=== PATIENT | male | born 1945 | race Caucasian/White ===

== ENCOUNTER 2018-11-14 11:27 | Inpatient (IN) | payer MEDICARE, OTHER ==
[~2018-11-14] VITALS: Ht 177.8 cm; Wt 111.1 kg
[~2018-11-14 11:27] MED LIST: CYCL10 PO; ENOX40I SQ; FISH OIL + D31 EACH PO; GLIP10 PO; LOSARTAN POTAS100 MG PO; METF500 PO; Norco 5-325 Ta1 EACH PO; OXYACE5T PO
[2018-11-14 11:58] LABS: BASOPHILS ABSOLUTE AUTO 0.05 K/mm3 (0.00-0.23); BASOPHILS PERCENT AUTO 1 % (0-2); EOSINOPHILS ABSOLUTE AUTO 0.67 K/mm3 (0.00-0.68); EOSINOPHILS PERCENT AUTO 8 % (0-6); Hematocrit 42.8 % (37.0-53.0); Hemoglobin 14.3 g/dL (13.5-17.5); IMMATURE GRAN ABSOLUTE AUTO 0.04 K/mm3 (0.00-0.10); IMMATURE GRAN PERCENT AUTO 1 % (0-1); LYMPHOCYTES ABSOLUTE AUTO 1.36 K/mm3 (0.84-5.20); LYMPHOCYTES PERCENT AUTO 16 % (21-46); MONOCYTES ABSOLUTE AUTO 0.72 K/mm3 (0.16-1.47); MONOCYTES PERCENT AUTO 9 % (4-13); Mean Corpuscular HGB 31.6 pg (26.0-34.0); Mean Corpuscular HGB Conc 33.4 g/dL (31.5-36.5); Mean Corpuscular Volume 95 fL (80-100); Mean Platelet Volume 9.8 fL (9.1-12.4); NEUTROPHILS ABSOLUTE AUTO 5.43 K/mm3 (1.96-9.15); NEUTROPHILS PERCENT AUTO 66 % (41-73); Platelet Count 160 K/mm3 (150-400); RDW Coefficient Variation 12.8 % (11.7-14.2); RDW Standard Deviation 44.7 fL (35.1-46.3); Red Blood Cell Count 4.52 M/mm3 (4.30-5.90); White Blood Cell Count 8.27 K/mm3 (4.00-11.30)
[2018-11-14 12:11] LABS: Albumin/Globulin Ratio 0.7 (0.8-1.8); Bilirubin, Total 1.9 mg/dL (0.1-1.0); Bun/Creatinine Ratio 17.9 (12.0-20.0); Calcium, Blood 10.1 mg/dL (8.5-10.1); Creatinine, Blood 1.84 mg/dL (0.60-1.20); Globulin, Blood 4.2 g/dL (2.2-4.0); Potassium, Blood 3.5 mmol/L (3.5-5.5); Total Protein, Blood 7.2 g/dL (6.4-8.2)
[2018-11-14 12:58] LABS: Influenza A Negative (NEGATIVE); Influenza B Negative (NEGATIVE)
[2018-11-14 16:53] LABS: Source, Urine Clean Catch
[2018-11-14 16:58] LABS: Bilirubin, Urine Neg (Neg); Blood, Urine Neg (Neg); Glucose Qualitative, Urine Neg (Neg); Ketones, Urine Neg (Neg); Leukocyte Esterase, Urine 1+ (Neg); Nitrite, Urine Neg (Neg); Protein, Urine 1+ (Neg); Specific Gravity, Urine 1.015 (1.003-1.022); Urobilinogen, Urine 1+ (Normal)
[2018-11-14 17:06] LABS: Appearance, Urine Clear (Clear); Color, Urine Yellow (P-Yellow)
[2018-11-14 17:12] LABS: Hyaline Casts 0-2 /lpf (0-2); Red Blood Cells, Urine 0-2 /hpf (0-2)
[2018-11-14 17:13] LABS: Bacteria Few /hpf; Squamous Epithelial Cells Rare /hpf (Few)
--- NOTE | 2018-11-14 19:17 | NUR ---
PT PLEASANT COOP SINCE ADMIT. SLIGHT TEMP ELEVATED. TYLENOL GIVEN. LACTIC ACID DID INCREASE DR NOTIFIED. LIGHT CRACKLES IN BASES. NO OTHER CONCERN AT THIS TIME. BED IN LOW POSITION, CALL LITE IN REACH, CALLS SANDRA. ; IN ROOM.
--- NOTE | 2018-11-14 22:16 | NUR ---
*LATE ENTRY CALLED 1999 HRS* PT HAD 102 TEMP, BP 110/72, HR 116. VIEWS SCORE-5. CONSULTED RECYCLER, CALLED ORDERS FOR LR @ 200 ML/HR, TYLENOL Q6 650 MG PRN FEVER GIVEN.
--- NOTE | 2018-11-14 22:19 | NUR ---
CALLED PT'S DR PT'S BP LOWERED TO 85/55, PULSE 106, TEMP 99.6. CALLED DR, MADE HER AWARE OF NEW VS. RECEIVED ORDER FOR 500 ML BOLUS OF LR, ONE TIME ONLY. RECHECKING BP AT 2230 HRS.
--- NOTE | 2018-11-14 23:58 | NUR ---
CALLED PT'S DR CALLED PT'S DR AT 2300 HRS TO REPORT BP OF 85/55, THIS WAS VERIFIED BY CHECKING BP'S IN BOTH ARMS WITH DIFFERENT CUFFS. DR ORDERED TO CONTINUE LR AT 200 ML/HR UNTIL COMPLETE AND THEN CONTINUE NS AT 125 ML/HR.
--- NOTE | 2018-11-15 00:04 | NUR ---
PT STATUS CLINICAL COODINATOR EVALUATED PT AND TOOK BP'S. ORDERED FLUID BOLUS WHEN BP WAS FOUND TO BE 79 SYSTOLIC. CALLED A RAPID RESPONSE AT APPROX 2330 HRS. RAPID RESPONSE TEAM FOUND THE PT SLOW TO RESPOND TO FLUID BOLUS WITH BP MID 80'S SYSTOLIC. RAPID RESPONSE TEAM EVALUATED THE SITUATION AND THE PT'S CONDITION AND MADE THE DECISION TO TAKE PT TO ICU. I IMMEDIATELY CALLED AND GAVE HANDOFF REPORT TO ICU NURSE ACE. HE HAD NO FURTHER QUESTIONS. RAPID RESPONSE TEAM TRANSPORTED THE PT TO TO ICU.
[2018-11-15 00:44] LABS: CPK Creatine Kinase 44 U/L (39-308); Troponin I 0.043 ng/mL (0.000-0.040)
[2018-11-15 00:55] LABS: Creatine Kinase MB < 1.0 ng/mL (0.0-3.6); Creatine Kinase MB Index 2.3 (0.0-4.0)
--- NOTE | 2018-11-15 02:30 | NUR ---
ASSUMING CARE RECEIVED PT REPORT FROM CASSANDRA GARCIA ON MEDICAL FLOOR. 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 PT BP IS IN THE LOW 70'S SYSTOLIC AT THE TIME OF ARRIVAL TO THE UNIT. PT IS ALERT AND OREINTED AT THIS TIME. PT HAS RECEIVED 2L BOLUSES OF LR ON MEDICAL FLOOR PER REPORT. PT IS RECEIVING LR AT 200ML/HR AT THE TIME OF ARRIVAL TO THE UNIT. PT CONTINUED TO BE HYPOTENSIVE. DR SERRANO WAS CALLED. RECEIVED ORDERS TO PROVIDE 2 ADDITIONAL LITER BOLUSES OF LR AND TO REDRAW LACTIC ACID. ORDERS ENTERED RECEIVED. PT IS SLIGHTLY DIAPHORETIC. TROPONIN DRAWN AND EKG PERFORMED. EKG READ NSR. PT IS AT BEDSIDE. AT THIS TIME PT CONTINUES TO RECEIVE FINAL LR BOLUS. PT BP HAS INCREASED TO THE LOW 90'S SYSTOLIC. ASSUMING CARE OF PT AT THE TIME OF ARRIVAL TO UNIT. WILL CONTINUE TO MONITOR PT.
[2018-11-15 03:28] LABS: BASOPHILS ABSOLUTE AUTO 0.03 K/mm3 (0.00-0.23); BASOPHILS PERCENT AUTO 1 % (0-2); EOSINOPHILS ABSOLUTE AUTO 0.56 K/mm3 (0.00-0.68); EOSINOPHILS PERCENT AUTO 9 % (0-6); Hematocrit 34.1 % (37.0-53.0); Hemoglobin 11.4 g/dL (13.5-17.5); IMMATURE GRAN ABSOLUTE AUTO 0.03 K/mm3 (0.00-0.10); IMMATURE GRAN PERCENT AUTO 1 % (0-1); LYMPHOCYTES ABSOLUTE AUTO 1.25 K/mm3 (0.84-5.20); LYMPHOCYTES PERCENT AUTO 20 % (21-46); MONOCYTES ABSOLUTE AUTO 0.54 K/mm3 (0.16-1.47); MONOCYTES PERCENT AUTO 9 % (4-13); Mean Corpuscular HGB Conc 33.4 g/dL (31.5-36.5); Mean Corpuscular Volume 96 fL (80-100); Mean Platelet Volume 9.5 fL (9.1-12.4); NEUTROPHILS ABSOLUTE AUTO 3.88 K/mm3 (1.96-9.15); NEUTROPHILS PERCENT AUTO 62 % (41-73); Platelet Count 121 K/mm3 (150-400); RDW Standard Deviation 45.7 fL (35.1-46.3); Red Blood Cell Count 3.56 M/mm3 (4.30-5.90); White Blood Cell Count 6.29 K/mm3 (4.00-11.30)
[2018-11-15 03:49] LABS: Albumin, Blood 2.3 g/dL (3.4-5.0); Albumin/Globulin Ratio 0.7 (0.8-1.8); Bun/Creatinine Ratio 20.6 (12.0-20.0); Calcium, Blood 8.6 mg/dL (8.5-10.1); Creatinine, Blood 1.36 mg/dL (0.60-1.20); Globulin, Blood 3.3 g/dL (2.2-4.0); Potassium, Blood 3.4 mmol/L (3.5-5.5); Total Protein, Blood 5.6 g/dL (6.4-8.2); Vancomycin, Random 8.2 ug/mL
[2018-11-15 03:58] LABS: Magnesium, Blood 1.1 mg/dL (1.6-2.4)
--- NOTE | 2018-11-15 06:02 | NUR ---
SHIFT SUMMARY NOTE PT RECEIVED 2L BOLUSES OF LR AFTER ARRIVAL TO THE UNIT PER ORDERS. PT IS CURRENTLY RECEIVING NS AT 125ML/HR. PT BP HAS INCREASED TO THE LOW 10'S AND IS MAINTAINING AT THIS TIME. PT HAS VOIDED FREQUENT SMALL AMOUNTS THROUGHOUT THE NIGHT. PT URINE APPEARED TO BE DARK SHANNON/ORANGE SHORTLY AFTER ARRIVAL TO THE UNIT, MORE RECENT VOIDS APPEAR TO BE BECOMING MORE LIGHT IN COLOR. PT HR IS MAINTAINING IN THE 90'S AT THIS TIME AND APPEARS TO BE SINUS. PT REMAINS ON CPAP AT THIS TIME WITH 2L BLEED IN WITH SPO2 MAINTAINING IN THE 90'S PT REMAINS ALERT AND ORIENTED WHILE AWAKE. WILL REPORT OFF TO ONCOMING DAY SHIFT NURSE.
--- NOTE | 2018-11-15 08:45 | NUR ---
DR SUSHMA ORDAZ ROUNDED, UPDATED ON PT STATUS. PT WITH CRITICAL LOW MAG THIS MORNING WITH REPLACEMENT BUT NOT F/U LEVEL, DR ORDAZ NOTIFIED AND ORDER FOR MAG LEVEL PLACED. PT WITH BUMPED TROPONIN, DR ORDAZ AWARE AND ORDER FOR REPEAT TROPONIN PLACED TO SEE TREND. DR ORDAZ AWARE OF PT'S OTHER LAB RESULTS. ORDER RECEIVED FOR CTA CHEST TO R/O PE AND CT ABD AND PELVIS D/T ELEVATED LFT. NO FURTHER CHANGES TO PLAN OF CARE AT THIS TIME. WILL CONT TO MONITOR PT.
--- NOTE | 2018-11-15 09:14 | NUR ---
OUT OF BED PT UP TO BSC AND THEN TO CHAIR WITH 1P SBA D/T CORDS/LINES. PT TOLERATED TRANSFER WELL, NO C/O DIZZINESS/LIGHTHEADEDNESS. PT WITH CHRONIC BACK PAIN, EXPERIENCING INCREASED DISCOMFORT WITH LYING IN BED, REPORTS IMPROVEMENT WITH SITTING UP IN CHAIR. CALL LIGHT IN REACH. WILL CONT TO MONITOR PT.
[2018-11-15 09:58] LABS: Magnesium, Blood 1.4 mg/dL (1.6-2.4); Troponin I 0.024 ng/mL (0.000-0.040)
--- NOTE | 2018-11-15 10:32 | NUR ---
IMAGING PT TO IMAGING FOR CTA AND CT ABD/PELVIS. PT TRANSPORTED VIA WHEELCHAIR WITH MONITOR ON. PT RETURNED TO ICU 10 AND ASSISTED BACK TO CHAIR. PT TOLERATED TRANSPORT AND STUDY WELL. CALL LIGHT IN REACH. WILL CONT TO MONITOR PT.
--- NOTE | 2018-11-15 10:37 | NUR ---
CALL TO DR SUSHMA ORDAZ NOTIFIED OF MAGNESIUM AND TROPONIN RESULTS. ORDERS RECEIVED FOR 2G MAGNESIUM IVPB NOW. NO FURTHER CHANGES TO PLAN OF CARE AT THIS TIME. WILL CONT TO MONITOR PT.
--- NOTE | 2018-11-15 11:07 | NUR ---
REPORT OFF REPORT GIVEN TO CASSANDRA SMITH. BEDSIDE REPORT GIVEN. LUIS TO ASSUME CARE OF PT AT THIS TIME.
--- NOTE | 2018-11-15 11:08 | NUR ---
RECEIVED REPORT FROM CASSANDRA SAEED, AND ASSUMED CARE OF PT.
--- NOTE | 2018-11-15 11:35 | NUR ---
STARTED 2ND MAG SULFATE 2G FOR TODAY.
[2018-11-15 11:52] LABS: BASOPHILS ABSOLUTE AUTO 0.04 K/mm3 (0.00-0.23); BASOPHILS PERCENT AUTO 1 % (0-2); EOSINOPHILS ABSOLUTE AUTO 0.43 K/mm3 (0.00-0.68); EOSINOPHILS PERCENT AUTO 6 % (0-6); Hematocrit 34.4 % (37.0-53.0); Hemoglobin 11.3 g/dL (13.5-17.5); IMMATURE GRAN ABSOLUTE AUTO 0.04 K/mm3 (0.00-0.10); IMMATURE GRAN PERCENT AUTO 1 % (0-1); LYMPHOCYTES ABSOLUTE AUTO 0.98 K/mm3 (0.84-5.20); LYMPHOCYTES PERCENT AUTO 14 % (21-46); MONOCYTES ABSOLUTE AUTO 0.45 K/mm3 (0.16-1.47); MONOCYTES PERCENT AUTO 7 % (4-13); Mean Corpuscular HGB 31.4 pg (26.0-34.0); Mean Corpuscular HGB Conc 32.8 g/dL (31.5-36.5); Mean Corpuscular Volume 96 fL (80-100); Mean Platelet Volume 10.4 fL (9.1-12.4); NEUTROPHILS ABSOLUTE AUTO 4.94 K/mm3 (1.96-9.15); NEUTROPHILS PERCENT AUTO 72 % (41-73); Platelet Count 123 K/mm3 (150-400); RDW Coefficient Variation 13.3 % (11.7-14.2); White Blood Cell Count 6.88 K/mm3 (4.00-11.30)
--- NOTE | 2018-11-15 14:42 | NUR ---
SENT URINE SPECIMEN FOR URINE LEGIONELLA TEST AND STREP. SENT RESPIRATORY PCR SWAB TO LAB.
--- NOTE | 2018-11-15 18:05 | NUR ---
NURSING SUMMARY ALERT AND ORIENTED X 4. NSR ON MONITOR, HR 70'S AND 80'S, BP STABLE. DID HAVE AN CONTACT FINGER ASSEMBLER ON 11/14 FOR LOW BP'S WITH SBP 60'S AND 70'S. BP STABLE AFTER IVF BOLUSES AND NS INFUSING AT 125 ML/HR. PT VOIDS PER URINAL. DID HAVE HIS FAMILY ASSIST HIM TO THE TOILET TODAY TO VOID. INSTRUCTED PT THAT HE NEEDS TO CALL STAFF FOR ASSISTANCE TO THE BATHROOM FOR SAFETY, TO MANAGE THE TUBES/LINES, AND PREVENT FALLS. VERBALIZED GOOD UNDERSTANDING. BM THIS MORNING. LUNGS CLEAR, DIMINISHED AT BASES, ROOM AIR. STANDS AND AMBULATES STRONG AND STEADY. WORKED WITH PHYSICAL THERAPY TODAY. RECEIVED MAG SULFATE 4G REPLACEMENT TODAY FOR MG 1.1 AFTER 1ST 2G AND THEN 1.4 AND 2ND 2G GIVEN, NEXT LABS IN AM. K 3.4 TODAY, DR. ORDAZ DECIDED NOT TO REPLACE TODAY. BLOOD SUGARS AC&HS. SENT URINE FOR LEGIONELLA AND STREP. SENT RESPIRATORY PCR SWAB TO LAB. ANTIBIOTICS.
[2018-11-15 18:35] LABS: Adenovirus Not Detected (NOT DETECT); Bordetella pertussis Not Detected (NOT DETECT); Chlamydophila pneumoniae Not Detected (NOT DETECT); Coronavirus 229E Not Detected (NOT DETECT); Coronavirus HKU1 Not Detected (NOT DETECT); Coronavirus NL63 Not Detected (NOT DETECT); Coronavirus OC43 Not Detected (NOT DETECT); Human Metapneumovirus Not Detected (NOT DETECT); Human Rhinovirus/Enterovirus Not Detected (NOT DETECT); Influenza A Not Detected (NOT DETECT); Influenza A/2009-H1 Not Detected (NOT DETECT); Influenza A/H1 Not Detected (NOT DETECT); Influenza A/H3 Not Detected (NOT DETECT); Influenza B Not Detected (NOT DETECT); Mycoplasma pneumoniae Not Detected (NOT DETECT); Parainfluenza Virus 1 Not Detected (NOT DETECT); Parainfluenza Virus 2 Not Detected (NOT DETECT); Parainfluenza Virus 3 Not Detected (NOT DETECT); Parainfluenza Virus 4 Not Detected (NOT DETECT); Respiratory Syncytial Virus Not Detected (NOT DETECT)
[2018-11-16 08:50] LABS: BASOPHILS ABSOLUTE AUTO 0.03 K/mm3 (0.00-0.23); BASOPHILS PERCENT AUTO 1 % (0-2); EOSINOPHILS ABSOLUTE AUTO 0.54 K/mm3 (0.00-0.68); EOSINOPHILS PERCENT AUTO 8 % (0-6); Hemoglobin 11.8 g/dL (13.5-17.5); IMMATURE GRAN ABSOLUTE AUTO 0.04 K/mm3 (0.00-0.10); IMMATURE GRAN PERCENT AUTO 1 % (0-1); LYMPHOCYTES ABSOLUTE AUTO 0.92 K/mm3 (0.84-5.20); LYMPHOCYTES PERCENT AUTO 14 % (21-46); MONOCYTES ABSOLUTE AUTO 0.62 K/mm3 (0.16-1.47); MONOCYTES PERCENT AUTO 9 % (4-13); Mean Corpuscular HGB 31.4 pg (26.0-34.0); Mean Corpuscular HGB Conc 33.7 g/dL (31.5-36.5); Mean Platelet Volume 9.9 fL (9.1-12.4); NEUTROPHILS PERCENT AUTO 68 % (41-73); Platelet Count 137 K/mm3 (150-400); RDW Coefficient Variation 13.2 % (11.7-14.2); Red Blood Cell Count 3.76 M/mm3 (4.30-5.90); White Blood Cell Count 6.65 K/mm3 (4.00-11.30)
[2018-11-16 08:51] LABS: Mean Corpuscular Volume 93 fL (80-100)
[2018-11-16 09:09] LABS: Alanine Aminotransfer (ALT/SGP 110 U/L (12-78); Albumin, Blood 2.4 g/dL (3.4-5.0); Albumin/Globulin Ratio 0.7 (0.8-1.8); Alk Phos 248 U/L (50-136); Anion Gap 10 mmol/L (6-16); Aspartate Aminotrans (AST/SGOT 51 U/L (12-37); Bilirubin, Total 3.5 mg/dL (0.1-1.0); Blood Urea Nitrogen 14 mg/dL (8-24); Bun/Creatinine Ratio 16.1 (12.0-20.0); CO2, Blood 25 mmol/L (21-32); Calcium, Blood 8.5 mg/dL (8.5-10.1); Chloride, Blood 105 mmol/L (98-108); Creatinine, Blood 0.87 mg/dL (0.60-1.20); Globulin, Blood 3.6 g/dL (2.2-4.0); Glomerular Filtration Rate >60 (60-); Glucose, Blood 176 mg/dL (70-99); Magnesium, Blood 1.2 mg/dL (1.6-2.4); Sodium, Blood 140 mmol/L (136-145)
--- NOTE | 2018-11-16 14:09 | NUR ---
CALLED DR. ORDAZ WITH K=3.0 AND MG=1.2, NEW ORDERS FOR KDUR 60 MEQS PO AND MAG SULFATE 2G IV.
--- NOTE | 2018-11-16 14:40 | NUR ---
NURSING SUMMARY MEDICAL STATUS, NON-TELE. ALERT AND ORIENTED X 4, FOLLOWS COMMANDS, STRONG AND STEAD GAIT, USES WALKER. NSR ON MONITOR, HR 80'S AND 90'S. LUNGS CLEAR, DIMINISHED AT BASES, ROOM AIR, USES CPAP AT NIGHT. VOIDS PER URINAL. LARGE BM THIS AM. K=3.0, GAVE KDUR 60 MEQS. MG=1.2, GAVE MAG SULFATE 2 G IV. DC'D NS. BLOOD SUGARS AC & HS, HAS BEEN REQUIRING 3 UNITS OF INSULIN WITH EACH MEAL. RIGHT FOREARM IV AND LEFT AC IV. AND FAMILY AT BEDSIDE.
--- NOTE | 2018-11-16 16:00 | NUR ---
CALLED REPORT TO CASSANDRA COLEMAN, WHOM WILL ASSUME CARE WHEN PT TRANSFERS TO ROOM 360.
--- NOTE | 2018-11-16 16:36 | NUR ---
PT TRANSFERRED TO ROOM 360 VIA WHEELCHAIR BY SAM CALVIN.
--- NOTE | 2018-11-16 19:03 | NUR ---
SHIFT SUMMARY: PATIENT XFR FROM ICU-10 THIS SHIFT. PT A&O; CALM AND COOPERATIVE WITH CARE. NO C/O PAIN SINCE ARRIVAL ON MEDICAL. SBA TO BATHROOM. TELE D/C'd PRIOR TO TRANSFER. ROOM AIR DURING DAY; PT USES CPAP c 2L BLEED-IN AT [facility]. IV ABX CONTINUING. REPORT GIVEN TO ONCOMING RN.
--- NOTE | 2018-11-17 05:35 | NUR ---
VSS, FEBRILE, A/O, SBA, CPAP AT NOC, 20G R FA, 20G L AC, FAMILY AT THE BEDSIDE, CBG ACHS, SLEPT WELL, NO COMPLAINTS
[2018-11-17 08:16] LABS: BASOPHILS ABSOLUTE AUTO 0.04 K/mm3 (0.00-0.23); BASOPHILS PERCENT AUTO 1 % (0-2); EOSINOPHILS PERCENT AUTO 12 % (0-6); Hematocrit 33.9 % (37.0-53.0); Hemoglobin 11.5 g/dL (13.5-17.5); IMMATURE GRAN ABSOLUTE AUTO 0.02 K/mm3 (0.00-0.10); IMMATURE GRAN PERCENT AUTO 0 % (0-1); LYMPHOCYTES PERCENT AUTO 19 % (21-46); MONOCYTES ABSOLUTE AUTO 0.68 K/mm3 (0.16-1.47); MONOCYTES PERCENT AUTO 10 % (4-13); Mean Corpuscular HGB 31.6 pg (26.0-34.0); Mean Corpuscular HGB Conc 33.9 g/dL (31.5-36.5); Mean Corpuscular Volume 93 fL (80-100); Mean Platelet Volume 9.7 fL (9.1-12.4); NEUTROPHILS ABSOLUTE AUTO 4.06 K/mm3 (1.96-9.15); NEUTROPHILS PERCENT AUTO 59 % (41-73); Platelet Count 137 K/mm3 (150-400); RDW Coefficient Variation 13.2 % (11.7-14.2); RDW Standard Deviation 45.2 fL (35.1-46.3); Red Blood Cell Count 3.64 M/mm3 (4.30-5.90)
[2018-11-17 08:43] LABS: Alanine Aminotransfer (ALT/SGP 99 U/L (12-78); Albumin, Blood 2.2 g/dL (3.4-5.0); Albumin/Globulin Ratio 0.6 (0.8-1.8); Alk Phos 296 U/L (50-136); Anion Gap 10 mmol/L (6-16); Aspartate Aminotrans (AST/SGOT 50 U/L (12-37); Bilirubin, Total 4.4 mg/dL (0.1-1.0); Blood Urea Nitrogen 11 mg/dL (8-24); Bun/Creatinine Ratio 13.7 (12.0-20.0); CO2, Blood 25 mmol/L (21-32); Calcium, Blood 8.8 mg/dL (8.5-10.1); Chloride, Blood 106 mmol/L (98-108); Globulin, Blood 3.6 g/dL (2.2-4.0); Glomerular Filtration Rate >60 (60-); Glucose, Blood 175 mg/dL (70-99); Potassium, Blood 3.3 mmol/L (3.5-5.5); Sodium, Blood 141 mmol/L (136-145); Total Protein, Blood 5.8 g/dL (6.4-8.2); Vancomycin, Trough 3.6 ug/mL (5.0-10.0)
--- NOTE | 2018-11-17 17:29 | NUR ---
SHIFT SUMMARY NO ACUTE CHANGES. PATIENT WORKED WITH PT TODAY. PATIENT DENIED PAIN, NAUSEA, OR SHORTNESS OF BREATH THIS SHIFT. PATIENT TO DISCHARGE TOMORROW. CALL LIGHT IN REACH, WILL CONTINUE TO MONITOR.
[2018-11-18 04:38] LABS: BASOPHILS ABSOLUTE AUTO 0.03 K/mm3 (0.00-0.23); BASOPHILS PERCENT AUTO 0 % (0-2); EOSINOPHILS ABSOLUTE AUTO 1.04 K/mm3 (0.00-0.68); EOSINOPHILS PERCENT AUTO 14 % (0-6); Hematocrit 36.7 % (37.0-53.0); Hemoglobin 12.2 g/dL (13.5-17.5); IMMATURE GRAN ABSOLUTE AUTO 0.03 K/mm3 (0.00-0.10); IMMATURE GRAN PERCENT AUTO 0 % (0-1); LYMPHOCYTES ABSOLUTE AUTO 1.67 K/mm3 (0.84-5.20); LYMPHOCYTES PERCENT AUTO 23 % (21-46); MONOCYTES ABSOLUTE AUTO 0.64 K/mm3 (0.16-1.47); MONOCYTES PERCENT AUTO 9 % (4-13); Mean Corpuscular HGB 31.8 pg (26.0-34.0); Mean Corpuscular HGB Conc 33.2 g/dL (31.5-36.5); Mean Platelet Volume 9.9 fL (9.1-12.4); NEUTROPHILS ABSOLUTE AUTO 3.97 K/mm3 (1.96-9.15); NEUTROPHILS PERCENT AUTO 54 % (41-73); Platelet Count 185 K/mm3 (150-400); RDW Coefficient Variation 13.6 % (11.7-14.2); RDW Standard Deviation 47.8 fL (35.1-46.3); Red Blood Cell Count 3.84 M/mm3 (4.30-5.90); White Blood Cell Count 7.38 K/mm3 (4.00-11.30)
[2018-11-18 04:39] LABS: Mean Corpuscular Volume 96 fL (80-100)
[2018-11-18 05:00] LABS: Alanine Aminotransfer (ALT/SGP 95 U/L (12-78); Albumin, Blood 2.3 g/dL (3.4-5.0); Albumin/Globulin Ratio 0.6 (0.8-1.8); Alk Phos 375 U/L (50-136); Anion Gap 7 mmol/L (6-16); Aspartate Aminotrans (AST/SGOT 43 U/L (12-37); Bilirubin, Total 4.3 mg/dL (0.1-1.0); Blood Urea Nitrogen 11 mg/dL (8-24); Bun/Creatinine Ratio 12.8 (12.0-20.0); CO2, Blood 28 mmol/L (21-32); Chloride, Blood 106 mmol/L (98-108); Creatinine, Blood 0.86 mg/dL (0.60-1.20); Glomerular Filtration Rate >60 (60-); Glucose, Blood 181 mg/dL (70-99); Potassium, Blood 3.7 mmol/L (3.5-5.5); Sodium, Blood 141 mmol/L (136-145); Total Protein, Blood 6.3 g/dL (6.4-8.2)
--- NOTE | 2018-11-18 06:01 | NUR ---
SHIFT SUMMARY PT SLEPT WELL T/O NIGHT W/CPAP ON. NO ACUTE CHANGES THIS SHIFT. AOX4. VSS. DENIES PAIN, N/V OR SOB. PT INDEPENDENT IN ROOM. CALL LIGHT IS IN REACH & I WILL CONT TO MONITOR PT UNTIL DAY SHIFT RN ASSUMES CARE.
[2018-11-18] MEDS ORDERED: ACET325 PO (12:48)
[2018-11-18] MEDS ORDERED: Levaquin500 MG PO (12:50)
[2018-11-18] MEDS ORDERED: CEPH500 PO (12:51)
[2018-11-18] MEDS ORDERED: CRANBERRY-PROB1 EACH PO (12:52)
--- NOTE | 2018-11-18 13:44 | NUR ---
DISCHARGE DISCHARGE MEDICATIONS AND INSTRUCTIONS EXPLAINED TO PATIENT AND PATIENT'S . THEY STATED UNDERSTANDING. IV REMOVED WITHOUT DIFFICULTY. BELONGINGS WITH PATIENT. PATIENT TRANSFERED TO PRIVATE VEHICLE VIA WHEELCHAIR.
== END 2018-11-18 13:34 | disposition home or self-care (01) | DRG 871 ==
LOC: ER 11:27 → MEDS 13:50 → ICUW 23:39 → MEDS 11-16 16:20
PROVIDERS: Emergency Medicine; Hospitalist; Internal Medicine; Physician Assistant; ADMIT Internal Medicine
DX: A41.9 Sepsis, unspecified organism (principal); J18.9 Pneumonia, unspecified organism; J96.20 Acute and chronic respiratory failure, unspecified whether with hypoxia or hypercapnia; N17.9 Acute kidney failure, unspecified; J44.1 Chronic obstructive pulmonary disease with (acute) exacerbation; R65.20 Severe sepsis without septic shock; E11.9 Type 2 diabetes mellitus without complications; I71.4 Abdominal aortic aneurysm, without rupture; E83.42 Hypomagnesemia; R79.89 Other specified abnormal findings of blood chemistry; I10 Essential (primary) hypertension; I95.9 Hypotension, unspecified; F17.200 Nicotine dependence, unspecified, uncomplicated; Z88.0 Allergy status to penicillin; Z88.8 Allergy status to other drugs, medicaments and biological substances; Z79.84 Long term (current) use of oral hypoglycemic drugs; Z79.899 Other long term (current) drug therapy
CPT/HCPCS: 36415; 71046; 71260; 74177; 76705; 80053; 80202; 81001; 82550; 82553; 82947; 83036; 83605; 83735; 83880; 84145; 84484; 85025; 85379; 85651; 87040; 87086; 87449; 87486; 87581; 87633; 87798; 87804; 93005; 93010; 94640; 94660; 94762; 96361; 96365; 96375; 97110; 97116; 97162; 97530; 99285-25; J0692; J0713; J1650; J1956; J3370; J3475; J7030; J7050; J7120; Q9967

== ENCOUNTER 2021-10-26 07:48 | Day surgery (SDC) | payer OTHER ==
[~2021-10-26] VITALS: Ht 177.8 cm; Wt 95.3 kg
[~2021-10-26 07:48] MED LIST changes: +ACET325 PO; +ASPIR 8181 M1; +CEPH500 PO; +CRANBERRY-PROB1 EACH PO; +FISH OIL 1,2001 EAC1; +LOSA25; +Levaquin500 MG PO; +Vitamin D1000 UNI1
--- NOTE | 2021-10-26 08:10 | NUR ---
10/26/21 0810 Dayana Miles TETRACAINE IN RIGHT EYE AT 0800. PLEDGETT PLACED AT 0802.
== END 2021-10-26 09:30 | disposition home or self-care (01) ==
LOC: ORSCSDS 07:48
PROVIDERS: Ophthalmology
PROC: 08RJ3JZ Replacement of Right Lens with Synthetic Substitute, Percutaneous Approach (ICD-10-PCS; principal; 2021-10-26 09:00)
DX: H25.11 Age-related nuclear cataract, right eye (principal); E11.9 Type 2 diabetes mellitus without complications; F17.210 Nicotine dependence, cigarettes, uncomplicated; I10 Essential (primary) hypertension; E66.9 Obesity, unspecified; Z68.30 Body mass index [BMI] 30.0-30.9, adult; Z79.82 Long term (current) use of aspirin; Z79.899 Other long term (current) drug therapy
CPT/HCPCS: 82947; J2001; J2250; J3010; J3301; J7040; J7120; V2632

== ENCOUNTER 2021-11-09 09:53 | Day surgery (SDC) | payer OTHER ==
[~2021-11-09] VITALS: Ht 177.8 cm; Wt 95.3 kg
--- NOTE | 2021-11-09 11:04 | NUR ---
11/09/21 1104 Ludivina Moran AT 1044 PLEDGET AT 1046
--- NOTE | 2021-11-09 12:01 | NUR ---
11/09/[address] NOTIFIED OF CBG, NO ORDERS GIVEN, MAY BE DISCHARGED.
== END 2021-11-09 12:02 | disposition home or self-care (01) ==
LOC: ORSCSDS 09:53
PROVIDERS: Ophthalmology
PROC: 08RK3JZ Replacement of Left Lens with Synthetic Substitute, Percutaneous Approach (ICD-10-PCS; principal; 2021-11-09 11:30)
DX: H25.12 Age-related nuclear cataract, left eye (principal); I10 Essential (primary) hypertension; G47.33 Obstructive sleep apnea (adult) (pediatric); E11.9 Type 2 diabetes mellitus without complications; Z79.899 Other long term (current) drug therapy; F17.210 Nicotine dependence, cigarettes, uncomplicated
CPT/HCPCS: 82947; J1815; J2001; J2250; J3010; J3301; J7040; V2632

== ENCOUNTER 2021-12-08 06:09 | Day surgery (SDC) | payer MEDICARE, OTHER ==
[~2021-12-08] VITALS: Ht 177.8 cm; Wt 94.7 kg
--- NOTE | 2021-12-08 07:00 | NUR ---
12/08/21 0700 DIONI DENTON PT DENIES ALLERGY TO PCN. PT STATES IT IS NOT A TRUE ALLERGY.
== END 2021-12-08 08:46 | disposition home or self-care (01) ==
LOC: ORSCSDS 06:09
DX: D04.72 Carcinoma in situ of skin of left lower limb, including hip (principal); J44.9 Chronic obstructive pulmonary disease, unspecified; E11.9 Type 2 diabetes mellitus without complications; G47.33 Obstructive sleep apnea (adult) (pediatric); I26.99 Other pulmonary embolism without acute cor pulmonale; I10 Essential (primary) hypertension; F17.210 Nicotine dependence, cigarettes, uncomplicated; Z79.84 Long term (current) use of oral hypoglycemic drugs; Z79.82 Long term (current) use of aspirin; Z79.899 Other long term (current) drug therapy
CPT/HCPCS: 82947; 88305; J0171; J0690; J2250; J2704

== ENCOUNTER 2023-07-09 10:35 | Observation (INO) | payer MEDICARE, OTHER ==
[~2023-07-09] VITALS: Ht 177.8 cm; Wt 95.8 kg
[2023-07-09] VITALS (27 sets, daily range): BP systolic 74–130; BP diastolic 50–100
[~2023-07-09 10:35] MED LIST changes: -ASPIR 8181 M1; +ASPIR 8181 M1 PO; -FISH OIL 1,2001 EAC1; +FISH OIL 1,2001 EAC7 PO; -LOSA25; +LOSA25 PO; -Vitamin D1000 UNI1; +Vitamin D1000 UNI1 PO
[2023-07-09 11:08] LABS: BASOPHILS ABSOLUTE AUTO 0.06 K/mm3 (0.00-0.23); BASOPHILS PERCENT AUTO 1 % (0-2); EOSINOPHILS ABSOLUTE AUTO 0.11 K/mm3 (0.00-0.68); EOSINOPHILS PERCENT AUTO 1 % (0-6); Hematocrit 45.5 % (37.0-53.0); Hemoglobin 15.9 g/dL (13.5-17.5); IMMATURE GRAN ABSOLUTE AUTO 0.02 K/mm3 (0.00-0.10); IMMATURE GRAN PERCENT AUTO 0 % (0-1); LYMPHOCYTES ABSOLUTE AUTO 1.98 K/mm3 (0.84-5.20); LYMPHOCYTES PERCENT AUTO 23 % (21-46); MONOCYTES ABSOLUTE AUTO 0.57 K/mm3 (0.16-1.47); MONOCYTES PERCENT AUTO 7 % (4-13); Mean Corpuscular HGB 31.9 pg (26.0-34.0); Mean Corpuscular HGB Conc 34.9 g/dL (31.5-36.5); Mean Corpuscular Volume 91 fL (80-100); NEUTROPHILS ABSOLUTE AUTO 5.76 K/mm3 (1.96-9.15); NEUTROPHILS PERCENT AUTO 68 % (41-73); Platelet Count 165 K/mm3 (150-400); RDW Coefficient Variation 12.9 % (11.7-14.2); RDW Standard Deviation 43.6 fL (35.1-46.3); Red Blood Cell Count 4.98 M/mm3 (4.30-5.90)
[2023-07-09] MEDS ORDERED: METO25ER PO (11:14)
[2023-07-09 11:15] LABS: Calcium, Ionized (POC) 1.21 mmol/L (1.10-1.46); Chloride (POC) 93 mmol/L (98-108); Creatinine (POC) 1.2 mg/dL (0.8-1.3); Glucose (ISTAT POC) 444 mg/dL (70-99); Hemoglobin (POC) 16.7 g/dL (13.5-17.5); Potassium (POC) 4.3 mmol/L (3.5-5.5); Sodium (POC) 132 mmol/L (135-148); Total CO2 (POC) 28 mmol/L (21-32)
[2023-07-09 11:26] LABS: Albumin, Blood 3.6 g/dL (3.4-5.0); Albumin/Globulin Ratio 0.9 (0.8-1.8); Bilirubin, Total 0.7 mg/dL (0.1-1.0); Bun/Creatinine Ratio 28.5 (12.0-20.0); Calcium, Blood 9.8 mg/dL (8.5-10.1); Creatinine, Blood 1.23 mg/dL (0.60-1.20); Potassium, Blood 4.1 mmol/L (3.5-5.5); Total Protein, Blood 7.6 g/dL (6.4-8.2)
--- NOTE | 2023-07-09 16:52 | NUR ---
Pt. is awake in bed and welcomes my visit. Family memeber is present. Pt. is pleasant. Facilitate a short life review and begin to establish rapport. Considered matters of roly and belief. Nurse Andreea was settling the Pt. into his room, So this lead net software developer graciously excused himself. Pt. welcomed this lead net software developer to return
--- NOTE | 2023-07-09 17:51 | NUR ---
ICU ADMISSION / SHIFT SUMMARY: REPORT RECEIVED FROM CASSANDRA HERNANDEZ IN ED. PT ARRIVED TO ICU-03 AT APPROX 1610. ON ARRIVAL, HE HAS NOTIFIED THIS RN THAT HE PREFERS TO BE CALLED "CHRISTIN." THE PT IS A&O TO ALL, PLEASANT & COOPERATIVE. HE IS CONVERSANT & JOKING W/ STAFF MEMBERS. HIS DAUGHTER, LAURA CR, HAS COME TO BEDSIDE & IS SUPPORTIVE IN CARE. THE PT HAS VERBALIZED THAT IF HE IS UNABLE TO MAKE DECISIONS, LAURA WILL BE HIS HEALTHCARE CLINICAL INFORMATICS SPEC & MAKE ALL NECESSARY DECISIONS. LS ARE CLEAR, DIM IN BASES. PT ON 2L NC W/ O2 SATS > 95%. HE STS USING A CPAP AT HOME, HIS DAUGHTER WILL BE BRINGING THE CPAP IN FOR HIS USE TONIGHT. CPAP JORDAN ORDERS OBTAINED FROM DR ARIAS & THIS RN HAS NOTIFIED RT. MONITOR SHOWS SR W/ FREQUENT PACs, HR 60-70s, HYPOTENSIVE W/ LEVOPHED INFUSING AT 3 MCG/MIN ON ADMIT, NOW TITRATED DOWN TO 1 MCG/MIN W/ MAP > 65. CONTINUOUS IVFs INFUSING PER ORDERS. PT DENIES GI COMPLAINTS EXCEPT HUNGER, STS LAST BM YESTERDAY WAS NORMAL FOR HIM. VOIDS URINE W/O DIFFICULTY. SKIN CONDITION OVERALL INTACT, NO SIGNS OF BREAKDOWN NOTED. PT ABLE TO REPOSITION SELF FOR COMFORT W/ MIN STAFF ASSIST. WILL CONTINUE TO MONITOR & REPORT OFF TO ONCOMING RN.
--- NOTE | 2023-07-09 18:29 | NUR ---
"Spiritual Care Visit | Pt. Request This is a follow up visit to the one soon after the Pts. ICU admission. Daughter and MAMI are present when Pt. welcomes my visit. After introductions prayer is given for the the Pt. Pt. displayed evidence of engagement and awareness. Pt. and family verbalized gratitude for the spiritual care visit."
--- NOTE | 2023-07-09 19:36 | NUR ---
ASSUMPTION OF CARE: RECEIVED REPORT FROM CUBA TRUJILLO. PT ALERT AND ORIENTED TO TIME, PERSON, PLACE AND SITUATION. LEVOPHED INFUSING AT 1 MCG/MIN, WHICH IS CURRENTLY ON SB. MAP >65. HR 70'S. DENIES SOB, CHEST PAIN OR PRESSURE. TITRATED OFF 2L OF OXYGEN TO RA AT THIS TIME. SPO2 >95%. LUNG SOUNDS CLEAR IN UPPERS DIM IN BASES. ABLE TO VOID IN THE URINAL CLEAR YELLOW URINE. NO BM YET THIS SHIFT. ABLE TO MOVE AROUND IN THE BED IND. FAMILY AT THE BEDSIDE AND UPDATED TO PLAN OF CARE. TWO PIV, ONE IN LEFT AC ONE IN RIGHT AC. RIGHT AC PIV INFUSING NS AT 150 ML/HR. CALL LIGHT IN REACH
--- NOTE | 2023-07-09 22:00 | NUR ---
UPDATE: CALL PLACED TO BONI REGARDING PT'S BLOOD SUGAR OF 474. PT GIVEN NIGHT TIME DOSE OF INSULIN GLARGINE WITH ORDERS FOR 6 UNITS IV REGULAR INSULIN. PT GIVEN THE REGULAR INSULIN AND RECHECKED BLOOD SUGAR AFTER THIRTY MINUTES. PT'S BLOOD SUGAR NOW DOWN TO 273.
[2023-07-10] VITALS (48 sets, daily range): BP systolic 82–155; BP diastolic 64–123
[2023-07-10 04:14] LABS: Bun/Creatinine Ratio 34.2 (12.0-20.0); Calcium, Blood 8.2 mg/dL (8.5-10.1); Creatinine, Blood 0.85 mg/dL (0.60-1.20); Potassium, Blood 3.7 mmol/L (3.5-5.5)
--- NOTE | 2023-07-10 06:22 | NUR ---
SHIFT SUMMARY: PT REMAINS ALERT AND ORIENTED TO TIME, PERSON, PLACE AND SITUATION. ABLE TO ANSWER QUESTIONS AND MAKE NEEDS KNOWN. LEVOPHED ON STANDBY SINCE 1924. MAP >65 WITH NO C/O CHEST PAIN OR PRESSURE T/O THE SHIFT. SINUS ARRHYTHMIA THIS SHIFT WITH RATE 60'S. LUNG SOUNDS REMAIN CLEAR AND DIM. PT REFUSED TO WEAR HIS CPAP T/O THE NIGHT STATED HE JUST DIDN'T WANT TOO. SPO2 >95%. DENIES SOB. CBG'S STABILIZED AFTER GIVING THE 6 UNITS REGULAR INSULIN. ABLE TO USE THE URINAL WITH MINIMAL ASSISTANCE T/O THE NIGHT. VOIDING YELLOW URINE. NO BM THIS SHIFT. PT ABLE TO SLEEP FOR A FEW HOURS UNITERRUPTED. LEFT AC PIV SALINE LOCKED. RIGHT AC PIV INFUSING NS AT 150 ML/HR. CALL LIGHT IN REACH.
--- NOTE | 2023-07-10 07:00 | NUR ---
ASSUMPTION OF CARE: ASSUMED CARE OF PATIENT WITH SINAI WILD. PATIENT SLEEPING QUIETLY IN BED. PATIENT APPEARS COMFORTABLE. LEVO CONTINUES TO BE ON SB. MAPS >65. PATIENT IS SINUS RHYTHM TO SINUS ARISTIDES WITH HRS MID 50S - HIGH 60S. SBPS IN THE 130S - 140S. NS RUNNING AT 150 MLS/HR. RESPIRATIONS ARE EVEN AND REGULAR WITH RR 16-20. URINAL IS AT THE BEDSIDE. CALL LIGHT WITHIN REACH.
--- NOTE | 2023-07-10 10:20 | NUR ---
Pt. is awake and welcomes my visit. Pt. i spleasant but displays evidence of being tired. Pt. verbalized that he didn't sleep well, and has new procedures to learn (medications and monitoring). Daughter is present. Pastoral encouragement is given and rapport is established. Pt. verbalized gratitude for the spiritual care visit.
[2023-07-10] MEDS ORDERED: ELIQUIS5 M2 PO (15:16)
[2023-07-10] MEDS ORDERED: INSULANPEN SC (15:25)
[2023-07-10] MEDS ORDERED: HUMALOG KW100 UNIT/1 SC (15:29)
--- NOTE | 2023-07-10 18:41 | NUR ---
DISCHARGE SUMMARY: NEURO: PATIENT ALERT AND ORIENTED THROUGHOUT THE SHIFT. DENIES NUMBNESS/TINGLING. STEADY WITH STANDING AND WALKING. EQUAL STRENGTH ACROSS EXTREMITIES. CARDIO: PATIENT DENIED CHEST PAIN OR PRESSURE. PATIENT HR IN THE MID 50S-HIGH 60S. SPB IN THE 120S-140S. PATIENT DENIED DIZZINESS, SHORTNESS OF BREATH, OR CHEST DISCOMFORT WITH AMBULATION OR AT REST. RESP: PATIENT ON ROOM AIR THROUGHOUT THE DAY. LUNG SOUNDS DIMINISHED IN THE BASES. ENCOURAGED PULMONARY HYGIENE. PATIENT ABLE TO DEMONSTRATE. PATIENT 93-97% ON ROOM AIR. DENIED SHORTNESS OF BREATH AT REST OR WITH ACTIVITY. GI/: PATIENT HAS AN APPETITE WITHOUT NAUSEA. PATIENT ABLE TO VOID INDEPENDENTLY INTO THE URINAL. DENIES BURNING OR DIFFICULTY VOIDING. URINE IS YELLOW WITHOUT FOUL ODOR. MUSCULOSKELETAL: PATIENT STEADY ON FEET. ABLE TO WALK WITHOUT ASSISTANCE. PSYCHSOCIAL: PATIENT REPORTS STRONG FAMILY SUPPORT. REPORTS THAT HE LIVES WITH HIS FAMILY VERY NEAR BY. PATIENT'S DAUGHTER LAURA IS A RN. SHE IS SUPPORTIVE AND REPORTS THAT SHE AND OTHER SIBLINGS WILL BE ABLE TO HELP WITH THE PATIENTS TRANSITION TO INSULIN. PATIENT ABLE TO DEMONSTRATE INSULIN INJECTIONS AND TEACH BACK INFORMATION. ABLE TO GET ELIQUIS FILLED PRIOR TO DISCHARGE.
== END 2023-07-10 18:29 | disposition home or self-care (01) ==
LOC: ER 10:35 → ERHOLD 10:36 → ICUE 10:36
PROVIDERS: Physician Assistant; Student in an Organized Health Care Education/Training Program; ADMIT Internal Medicine
DX: I95.9 Hypotension, unspecified (principal); I48.92 Unspecified atrial flutter; I71.40 Abdominal aortic aneurysm, without rupture, unspecified; I48.91 Unspecified atrial fibrillation; F17.210 Nicotine dependence, cigarettes, uncomplicated; I10 Essential (primary) hypertension; J44.9 Chronic obstructive pulmonary disease, unspecified; E11.65 Type 2 diabetes mellitus with hyperglycemia; Z79.84 Long term (current) use of oral hypoglycemic drugs
CPT/HCPCS: 36415; 71045; 80047; 80048; 80053; 82947; 83690; 83735; 83880; 84443; 84484; 85014; 85025; 92960; 93005; 93010; 93306; 94660; 96361; 96361-59; 96374-59; 96375; 96375-59; 99285-25; A9270; G0378; J1815; J3010; J7030; J7060

== ENCOUNTER → 2024-08-04 | Outpatient (CLI) | payer MEDICARE, OTHER ==
[~2024-08-04] MED LIST changes: +ELIQUIS5 M2 PO; +HUMALOG KW100 UNIT/1 SC; +INSULANPEN SC; +METO25ER PO
[2024-08-08 11:49] LABS: 6-ACETYLMORPHINE, URN, QUANT <10 ng/mL; CODEINE, URN, QUANT <20 ng/mL; HYDROCODONE, URN, QUANT <20 ng/mL; HYDROMORPHONE, URN, QUANT <20 ng/mL; MORPHINE, URN, QUANT <20 ng/mL; NORHYDROCODONE, URN, QUANT <20 ng/mL; NOROXYCODONE, URN, QUANT <20 ng/mL; NOROXYMORPHONE, URN, QUANT <20 ng/mL; OXYCODONE, URN, QUANT <20 ng/mL; OXYMORPHONE, URN, QUANT <20 ng/mL
== END ==
LOC: LAB 18:13 → LAB SHORT 18:13
PROVIDERS: Family Medicine
DX: Z51.81 Encounter for therapeutic drug level monitoring (principal); Z79.899 Other long term (current) drug therapy
CPT/HCPCS: G0480

== ENCOUNTER → 2025-02-02 | Outpatient (CLI) | payer MEDICARE, OTHER | END | disposition home or self-care (01) | LOC: LAB SHORT 18:53 → LAB 18:53 | DX: R31.9 Hematuria, unspecified (principal) | CPT/HCPCS: 87086 ==